=== PATIENT | male | born 1955 ===

== ENCOUNTER 2021-07-09 03:54 | Emergency (ER) | payer MEDICARE, OTHER ==
[~2021-07-09] VITALS: Ht 177.8 cm; Wt 81.6 kg
[2021-07-09 04:02] VITALS: BP 0/0
== END 2021-07-09 04:04 ==
LOC: ER 03:54 → EDBD 03:54 → ER 04:04
DX: I46.9 Cardiac arrest, cause unspecified (principal); J44.9 Chronic obstructive pulmonary disease, unspecified; I11.0 Hypertensive heart disease with heart failure; I50.9 Heart failure, unspecified
CPT/HCPCS: 31500; 92950